=== PATIENT | female | born 1945 | race Caucasian/White ===

== ENCOUNTER 2023-01-11 13:25 | Inpatient (IN) | payer OTHER ==
[2023-01-11] MEDS ORDERED: HALOPERIDOL LACTATE 5 MG/ML IM ONE ×2 (15:12→15:26)
[2023-01-11] MEDS ORDERED: MIDAZOLAM HCL 2 MG/2 ML SINGLE DOSE VIAL IM ONE (15:12)
[2023-01-11] MEDS ORDERED: MIDAZOLAM HCL 2 MG/2 ML SINGLE DOSE VIAL ONE (15:25)
[2023-01-11 16:09] LABS: EPI CELLS 14 /uL (0-25.1); HYALINE CASTS 0 /uL (0-3.1); PH,URINE 6.5 (5.0-8.0); URINE APPEARANCE CLEAR; URINE BACTERIA 101 /uL (0-1359); URINE BILIRUBIN NEGATIVE (NEGATIVE); URINE COLOR YELLOW; URINE GLUCOSE (UA) NEGATIVE (NEGATIVE); URINE KETONE TRACE (NEGATIVE); URINE LEUK ESTERASE 2+ (NEGATIVE); URINE NITRITE NEGATIVE (NEGATIVE); URINE PROTEIN NEGATIVE (NEGATIVE); URINE RBC 14 /uL (0-23.9); URINE WBC 32 /uL (0-25.8)
[2023-01-11 17:17] LABS: BASO % 0.4 % (0-2.0); EOS % 0.3 % (0-4.5); HEMATOCRIT 37.3 % (32.4-45.2); HEMOGLOBIN 11.9 GM/dL (10.7-15.3); LYMPH % 12.1 % (8-40); MCH 26.2 pg (25.7-33.7); MCHC 31.8 g/dl (32.0-36.0); MEAN CELL VOLUME 82.5 fl (80-96); MEAN PLT VOLUME 9.9 fl (7.5-11.1); MONO % 5.2 % (3.8-10.2); PLATELET COUNT 171 10^3/uL (134-434); RBC 4.52 M/mm3 (3.60-5.2); RDW 14.9 % (11.6-15.6); WHITE BLOOD COUNT 7.5 K/mm3 (4.0-10.0)
[2023-01-11 17:39] LABS: POTASSIUM 4.2 mmol/L (3.5-5.1)
[2023-01-11 17:40] LABS: CALCIUM 8.7 mg/dL (8.5-10.1)
[2023-01-11 17:41] LABS: ALBUMIN 3.3 g/dl (3.4-5.0); BLOOD UREA NITROGEN 25.3 mg/dL (7-18); MAGNESIUM 2.2 mg/dL (1.8-2.4)
[2023-01-11 17:44] LABS: CREATININE 0.9 mg/dL (0.55-1.3)
[2023-01-11 17:46] LABS: BILIRUBIN,TOTAL 0.4 mg/dL (0.2-1); TOT PROT 7.2 g/dl (6.4-8.2)
[2023-01-11] MEDS ORDERED: cefTRIAXone SODIUM 1 GM VIAL ONE (17:51)
[2023-01-11] MEDS ORDERED: POLYETHYLENE GLYCOL (HEALTHYLAX) 3350 17 GM PACKET PO SCH (20:45)
[2023-01-11] MEDS ORDERED: DONEPEZIL HCL 5 MG TABLET (FP) PO SCH (20:45)
[2023-01-11] MEDS ORDERED: MAG HYDROX/AL HYDROX/SIMETH 30 ML UNIT-DOSE CUP PO PRN (20:45)
[2023-01-11] MEDS ORDERED: PATIENT'S OWN MEDICATION (NON-FORMULARY) (Melatonin [Melatonin] 3 MG Tablet) PO SCH (20:45)
[2023-01-11] MEDS ORDERED: ATORVASTATIN CA 40 MG TABLET (FP) ONE (21:23)
[2023-01-11] MEDS ORDERED: DIVALPROEX SODIUM 125 MG TABLET E.C. ONE (21:24)
[2023-01-11] MEDS ORDERED: DONEPEZIL HCL 5 MG TABLET (FP) ONE (21:24)
[2023-01-11] MEDS ORDERED: ASCORBIC ACID 500 MG TABLET (FP) ONE (21:24)
[2023-01-11] MEDS ORDERED: QUEtiapine FUMARATE 25 MG TABLET ONE (21:24)
[2023-01-11] MEDS ORDERED: PATIENT'S OWN MEDICATION (NON-FORMULARY) (Ascorbic Acid [Vitamin C] 500 MG Capsule) PO SCH (22:00)
[2023-01-11] MEDS ORDERED: DIVALPROEX SODIUM 250 MG TABLET E.C. PO SCH (22:00)
[2023-01-11] MEDS: ATORVASTATIN CA 40 MG TABLET (FP) PO SCH (23:18)
[2023-01-11] MEDS: SENNOSIDES/DOCUSATE COMBO (SENNA PLUS) TABLET (UD) PO SCH (23:18)
[2023-01-11] MEDS: MELATONIN 1 MG TABLET PO SCH (23:18)
[2023-01-11] MEDS: INSULIN SLIDING SCALE (NOVOLOG) 1 VIAL SQ SCH (23:19)
[2023-01-11] MEDS: ASCORBIC ACID 500 MG TABLET (FP) PO SCH (23:19)
[2023-01-11] MEDS: QUEtiapine FUMARATE 50 MG TABLET PO SCH (23:19)
[2023-01-12] MEDS: MEMANTINE HCL 10 MG TABLET (FP) PO SCH ×3 (01:22→22:54)
[2023-01-12] MEDS ORDERED: hydrALAZINE HCL 10 MG TABLET PO ONE (04:35)
[2023-01-12] MEDS: SODIUM CHLORIDE 1,000 ML IV SCH ×2 (05:05→22:53)
[2023-01-12] MEDS: INSULIN SLIDING SCALE (NOVOLOG) 1 VIAL SQ SCH ×4 (06:08→22:53)
[2023-01-12] MEDS ORDERED: HALOPERIDOL LACTATE 5 MG/ML IM PRN (07:00)
[2023-01-12 07:25] LABS: HEMATOCRIT 35.2 % (32.4-45.2); HEMOGLOBIN 11.4 GM/dL (10.7-15.3); MCH 26.2 pg (25.7-33.7); MCHC 32.3 g/dl (32.0-36.0); MEAN CELL VOLUME 81.1 fl (80-96); MEAN PLT VOLUME 9.6 fl (7.5-11.1); PLATELET COUNT 157 10^3/uL (134-434); RBC 4.33 M/mm3 (3.60-5.2); RDW 15.1 % (11.6-15.6); WHITE BLOOD COUNT 5.7 K/mm3 (4.0-10.0)
[2023-01-12 07:34] LABS: POTASSIUM 4.2 mmol/L (3.5-5.1)
[2023-01-12 07:36] LABS: CALCIUM 8.7 mg/dL (8.5-10.1)
[2023-01-12 07:37] LABS: ALBUMIN 3.1 g/dl (3.4-5.0); MAGNESIUM 2.3 mg/dL (1.8-2.4)
[2023-01-12 07:40] LABS: CREATININE 0.9 mg/dL (0.55-1.3); PHOSPHOROUS 3.4 mg/dL (2.5-4.9)
[2023-01-12 07:42] LABS: BILIRUBIN,TOTAL 0.2 mg/dL (0.2-1); TOT PROT 6.5 g/dl (6.4-8.2)
[2023-01-12] MEDS ORDERED: DONEPEZIL HCL 5 MG TABLET (FP) PO SCH (07:49)
[2023-01-12] MEDS ORDERED: CEFTRIAXONE 1 GM in DEXTROSE 5%-WATER - 50 ML IVPB SCH (08:00)
[2023-01-12] MEDS ORDERED: QUEtiapine FUMARATE 25 MG TABLET ONE ×2 (10:14→22:49)
[2023-01-12] MEDS: SENNOSIDES/DOCUSATE COMBO (SENNA PLUS) TABLET (UD) PO SCH (10:17)
[2023-01-12] MEDS: ASCORBIC ACID 500 MG TABLET (FP) PO SCH ×2 (10:17→22:54)
[2023-01-12] MEDS: ENOXAPARIN NA (PORCINE) 40 MG/0.4 ML DISP.SYRIN SQ SCH (10:18)
[2023-01-12] MEDS: QUEtiapine FUMARATE 50 MG TABLET PO SCH ×2 (10:19→22:57)
[2023-01-12] MEDS: POLYETHYLENE GLYCOL (HEALTHYLAX) 3350 17 GM PACKET PO SCH (10:28)
[2023-01-12] MEDS ORDERED: INSULIN SLIDING SCALE (NOVOLOG) 1 VIAL SQ ONE (11:45)
[2023-01-12] MEDS: DIVALPROEX SODIUM 125 MG TABLET E.C. PO SCH ×2 (11:46→22:54)
[2023-01-12 12:41] VITALS: BMI 24.9
[2023-01-12] MEDS: FAMOTIDINE 20 MG TABLET PO SCH (13:09)
[2023-01-12] MEDS: METOPROLOL TARTRATE 50 MG TABLET (FP) PO SCH ×2 (17:48→22:52)
[2023-01-12] MEDS: MELATONIN 1 MG TABLET PO SCH (22:52)
[2023-01-12] MEDS: ATORVASTATIN CA 40 MG TABLET (FP) PO SCH (22:54)
[2023-01-13] MEDS: INSULIN SLIDING SCALE (NOVOLOG) 1 VIAL SQ SCH ×4 (06:18→21:49)
[2023-01-13] MEDS: FAMOTIDINE 20 MG TABLET PO SCH (09:55)
[2023-01-13] MEDS: ASCORBIC ACID 500 MG TABLET (FP) PO SCH ×2 (09:55→21:48)
[2023-01-13] MEDS: QUEtiapine FUMARATE 25 MG TABLET PO SCH ×4 (09:55→21:48)
[2023-01-13] MEDS: POLYETHYLENE GLYCOL (HEALTHYLAX) 3350 17 GM PACKET PO SCH (09:55)
[2023-01-13] MEDS: METOPROLOL TARTRATE 50 MG TABLET (FP) PO SCH ×2 (09:55→21:49)
[2023-01-13] MEDS: SENNOSIDES/DOCUSATE COMBO (SENNA PLUS) TABLET (UD) PO SCH (09:55)
[2023-01-13] MEDS: MULTIVITAMINS (DAILY MVI) TABLET (FP) PO SCH (09:55)
[2023-01-13] MEDS: MEMANTINE HCL 10 MG TABLET (FP) PO SCH ×2 (09:56→21:48)
[2023-01-13] MEDS: DIVALPROEX SODIUM 125 MG TABLET E.C. PO SCH ×2 (09:56→21:48)
[2023-01-13] MEDS: ENOXAPARIN NA (PORCINE) 40 MG/0.4 ML DISP.SYRIN SQ SCH (09:56)
[2023-01-13] MEDS: MELATONIN 1 MG TABLET PO SCH (21:48)
[2023-01-13] MEDS: ATORVASTATIN CA 40 MG TABLET (FP) PO SCH (21:48)
[2023-01-14 08:53] LABS: BASO % 0.3 % (0-2.0); EOS % 0.8 % (0-4.5); HEMATOCRIT 38.8 % (32.4-45.2); HEMOGLOBIN 12.4 GM/dL (10.7-15.3); LYMPH % 11.4 % (8-40); MCH 26.3 pg (25.7-33.7); MCHC 31.9 g/dl (32.0-36.0); MEAN CELL VOLUME 82.7 fl (80-96); MONO % 6.2 % (3.8-10.2); NEUT % 81.3 % (42.8-82.8); PLATELET COUNT 172 10^3/uL (134-434); RBC 4.69 M/mm3 (3.60-5.2); WHITE BLOOD COUNT 8.7 K/mm3 (4.0-10.0)
[2023-01-14 09:13] LABS: POTASSIUM 4.1 mmol/L (3.5-5.1)
[2023-01-14 09:20] LABS: ALBUMIN 3.1 g/dl (3.4-5.0); BLOOD UREA NITROGEN 19.6 mg/dL (7-18); MAGNESIUM 2.5 mg/dL (1.8-2.4)
[2023-01-14 09:21] LABS: PHOSPHOROUS 3.7 mg/dL (2.5-4.9)
[2023-01-14 09:23] LABS: BILIRUBIN,TOTAL 0.5 mg/dL (0.2-1); TOT PROT 7.1 g/dl (6.4-8.2)
[2023-01-14] MEDS: INSULIN SLIDING SCALE (NOVOLOG) 1 VIAL SQ SCH ×4 (09:45→21:39)
[2023-01-14] MEDS: QUEtiapine FUMARATE 25 MG TABLET PO SCH ×4 (10:25→21:38)
[2023-01-14] MEDS: FAMOTIDINE 20 MG TABLET PO SCH (10:25)
[2023-01-14] MEDS: MULTIVITAMINS (DAILY MVI) TABLET (FP) PO SCH (10:25)
[2023-01-14] MEDS: SENNOSIDES/DOCUSATE COMBO (SENNA PLUS) TABLET (UD) PO SCH (10:25)
[2023-01-14] MEDS: METOPROLOL TARTRATE 50 MG TABLET (FP) PO SCH ×2 (10:26→21:38)
[2023-01-14] MEDS: ASCORBIC ACID 500 MG TABLET (FP) PO SCH ×2 (10:26→21:38)
[2023-01-14] MEDS: POLYETHYLENE GLYCOL (HEALTHYLAX) 3350 17 GM PACKET PO SCH (10:26)
[2023-01-14] MEDS: MEMANTINE HCL 10 MG TABLET (FP) PO SCH ×2 (10:26→21:38)
[2023-01-14] MEDS: DIVALPROEX SODIUM 125 MG TABLET E.C. PO SCH ×2 (10:27→21:38)
[2023-01-14] MEDS: ENOXAPARIN NA (PORCINE) 40 MG/0.4 ML DISP.SYRIN SQ SCH (10:27)
[2023-01-14] MEDS ORDERED: INSULIN SLIDING SCALE (NOVOLOG) 1 VIAL SQ ONE (10:28)
[2023-01-14] MEDS ORDERED: QUEtiapine FUMARATE 25 MG TABLET PO ONE (12:36)
[2023-01-14] MEDS: MELATONIN 1 MG TABLET PO SCH (21:38)
[2023-01-14] MEDS: ATORVASTATIN CA 40 MG TABLET (FP) PO SCH (21:39)
[2023-01-15] MEDS: INSULIN SLIDING SCALE (NOVOLOG) 1 VIAL SQ SCH ×3 (07:02→18:05)
[2023-01-15 09:48] LABS: HEMATOCRIT 40.5 % (32.4-45.2); HEMOGLOBIN 13.3 GM/dL (10.7-15.3); MCH 26.5 pg (25.7-33.7); MCHC 32.8 g/dl (32.0-36.0); MEAN CELL VOLUME 80.8 fl (80-96); MEAN PLT VOLUME 9.1 fl (7.5-11.1); PLATELET COUNT 175 10^3/uL (134-434); RBC 5.01 M/mm3 (3.60-5.2); RDW 15.2 % (11.6-15.6); WHITE BLOOD COUNT 6.9 K/mm3 (4.0-10.0)
[2023-01-15] MEDS ORDERED: NUEDEXTA PO SCH (10:00)
[2023-01-15] MEDS ORDERED: ERGOCALCIFEROL (VIT D2) 50,000 UNIT (1.25 MG) CAPSULE PO SCH (10:00)
[2023-01-15 10:52] LABS: POTASSIUM 3.8 mmol/L (3.5-5.1)
[2023-01-15 10:56] LABS: ALBUMIN 3.3 g/dl (3.4-5.0)
[2023-01-15 10:57] LABS: PHOSPHOROUS 3.8 mg/dL (2.5-4.9)
[2023-01-15 10:59] LABS: BILIRUBIN,TOTAL 0.6 mg/dL (0.2-1); CALCIUM 9.1 mg/dL (8.5-10.1); MAGNESIUM 2.5 mg/dL (1.8-2.4); TOT PROT 7.5 g/dl (6.4-8.2)
[2023-01-15] MEDS: QUEtiapine FUMARATE 25 MG TABLET PO SCH ×4 (11:00→22:44)
[2023-01-15] MEDS: FAMOTIDINE 20 MG TABLET PO SCH (11:00)
[2023-01-15] MEDS: ASCORBIC ACID 500 MG TABLET (FP) PO SCH ×2 (11:00→22:46)
[2023-01-15] MEDS: MEMANTINE HCL 10 MG TABLET (FP) PO SCH ×2 (11:00→22:45)
[2023-01-15] MEDS: MULTIVITAMINS (DAILY MVI) TABLET (FP) PO SCH (11:00)
[2023-01-15] MEDS: ENOXAPARIN NA (PORCINE) 40 MG/0.4 ML DISP.SYRIN SQ SCH (11:01)
[2023-01-15] MEDS: POLYETHYLENE GLYCOL (HEALTHYLAX) 3350 17 GM PACKET PO SCH (11:01)
[2023-01-15] MEDS: SENNOSIDES/DOCUSATE COMBO (SENNA PLUS) TABLET (UD) PO SCH (11:01)
[2023-01-15] MEDS: METOPROLOL TARTRATE 50 MG TABLET (FP) PO SCH ×2 (11:04→22:46)
[2023-01-15] MEDS: DIVALPROEX SODIUM 125 MG TABLET E.C. PO SCH ×3 (12:10→22:47)
[2023-01-15 12:42] LABS: INR 1.07 (0.83-1.09); PROTHROMBIN TIME (PATIENT) 12.4 SEC (9.7-13.0)
[2023-01-15 12:44] LABS: ACTIVATED PTT 32.9 SECONDS (25.2-36.5)
[2023-01-15] MEDS: NUEDEXTA PO SCH ×2 (17:27→19:31)
[2023-01-15] MEDS: ERGOCALCIFEROL (VIT D2) 50,000 UNIT (1.25 MG) CAPSULE PO SCH ×2 (17:28→19:32)
[2023-01-15] MEDS: ATORVASTATIN CA 40 MG TABLET (FP) PO SCH (22:44)
[2023-01-15] MEDS: MELATONIN 1 MG TABLET PO SCH (22:45)
[2023-01-15] MEDS: CEFUROXIME AXETIL 500 MG TABLET PO SCH (22:48)
[2023-01-16] MEDS: INSULIN SLIDING SCALE (NOVOLOG) 1 VIAL SQ SCH ×5 (01:18→22:51)
[2023-01-16] MEDS: MULTIVITAMINS (DAILY MVI) TABLET (FP) PO SCH (10:32)
[2023-01-16] MEDS: SENNOSIDES/DOCUSATE COMBO (SENNA PLUS) TABLET (UD) PO SCH (10:32)
[2023-01-16] MEDS: POLYETHYLENE GLYCOL (HEALTHYLAX) 3350 17 GM PACKET PO SCH (10:32)
[2023-01-16] MEDS: ASCORBIC ACID 500 MG TABLET (FP) PO SCH ×2 (10:33→22:47)
[2023-01-16] MEDS: DIVALPROEX SODIUM 125 MG TABLET E.C. PO SCH ×2 (10:33→22:48)
[2023-01-16] MEDS: FAMOTIDINE 20 MG TABLET PO SCH (10:33)
[2023-01-16] MEDS: CEFUROXIME AXETIL 500 MG TABLET PO SCH ×2 (10:33→22:48)
[2023-01-16] MEDS: MEMANTINE HCL 10 MG TABLET (FP) PO SCH ×2 (10:34→22:47)
[2023-01-16] MEDS: QUEtiapine FUMARATE 25 MG TABLET PO SCH ×4 (10:34→22:47)
[2023-01-16] MEDS: METOPROLOL TARTRATE 50 MG TABLET (FP) PO SCH (10:34)
[2023-01-16] MEDS: ENOXAPARIN NA (PORCINE) 40 MG/0.4 ML DISP.SYRIN SQ SCH (11:30)
[2023-01-16] MEDS ORDERED: SODIUM CHLORIDE 500 ML IV STA (13:28)
[2023-01-16] MEDS ORDERED: METOPROLOL TARTRATE 50 MG TABLET (FP) PO SCH (13:37)
[2023-01-16] MEDS ORDERED: SODIUM CHLORIDE 1,000 ML IV SCH (13:45)
[2023-01-16] MEDS: METOPROLOL TARTRATE 25 MG TABLET (FP) PO SCH (22:47)
[2023-01-16] MEDS: ATORVASTATIN CA 40 MG TABLET (FP) PO SCH (22:47)
[2023-01-17 05:24] VITALS: BP 132/79; PULSE 58; RESP 16; TEMP 98.3
[2023-01-17] MEDS: INSULIN SLIDING SCALE (NOVOLOG) 1 VIAL SQ SCH ×2 (06:39→11:15)
[2023-01-17] MEDS: QUEtiapine FUMARATE 25 MG TABLET PO SCH (10:39)
[2023-01-17] MEDS: ENOXAPARIN NA (PORCINE) 40 MG/0.4 ML DISP.SYRIN SQ SCH (10:39)
[2023-01-17] MEDS: MULTIVITAMINS (DAILY MVI) TABLET (FP) PO SCH (10:39)
[2023-01-17] MEDS: METOPROLOL TARTRATE 25 MG TABLET (FP) PO SCH (10:39)
[2023-01-17] MEDS: POLYETHYLENE GLYCOL (HEALTHYLAX) 3350 17 GM PACKET PO SCH (10:39)
[2023-01-17] MEDS: MEMANTINE HCL 10 MG TABLET (FP) PO SCH (10:39)
[2023-01-17] MEDS: FAMOTIDINE 20 MG TABLET PO SCH (10:39)
[2023-01-17] MEDS: SENNOSIDES/DOCUSATE COMBO (SENNA PLUS) TABLET (UD) PO SCH (10:39)
[2023-01-17] MEDS: ASCORBIC ACID 500 MG TABLET (FP) PO SCH (10:39)
[2023-01-17] MEDS: DIVALPROEX SODIUM 125 MG TABLET E.C. PO SCH (10:53)
[2023-01-17] MEDS: CEFUROXIME AXETIL 500 MG TABLET PO SCH (10:53)
== END 2023-01-17 12:25 | DRG 312 ==
LOC: JER 13:25 → JERBED 18:36 → J4S 23:48 → J8W 01-14 23:50
PROVIDERS: ADMIT Internal Medicine; ATTEND Nurse Practitioner Family
DX: R55 Syncope and collapse (principal); N39.0 Urinary tract infection, site not specified; E78.5 Hyperlipidemia, unspecified; K21.9 Gastro-esophageal reflux disease without esophagitis; E20.9 Hypoparathyroidism, unspecified; G40.909 Epilepsy, unspecified, not intractable, without status epilepticus; G30.9 Alzheimer's disease, unspecified; F02.80 Dementia in other diseases classified elsewhere, unspecified severity, without behavioral disturbance, psychotic disturbance, mood disturbance, and anxiety; F32.A Depression, unspecified; E55.9 Vitamin D deficiency, unspecified; F39 Unspecified mood [affective] disorder; R26.81 Unsteadiness on feet; E86.0 Dehydration; I12.9 Hypertensive chronic kidney disease with stage 1 through stage 4 chronic kidney disease, or unspecified chronic kidney disease; E11.22 Type 2 diabetes mellitus with diabetic chronic kidney disease; N18.9 Chronic kidney disease, unspecified; B95.1 Streptococcus, group B, as the cause of diseases classified elsewhere; W05.0XXA Fall from non-moving wheelchair, initial encounter; Y92.232 Corridor of hospital as the place of occurrence of the external cause
CPT/HCPCS: 0241U-QW; 36415; 70450-TC; 71045-TC-FY; 72125-TC; 73502-TC-LT-FY; 80053; 80164; 81003; 82962; 83735; 84100; 84484; 85025; 85027; 85610; 85730; 87077; 87086; 93005; 93010; 93306-TC; 97116-GP; 99285-25

== ENCOUNTER 2023-08-30 13:31 | Inpatient (IN) | payer OTHER ==
[2023-08-30 15:08] LABS: BASO % 0.5 % (0-2.0); EOS % 0.3 % (0-4.5); HEMATOCRIT 37.8 % (32.4-45.2); HEMOGLOBIN 12.3 GM/dL (10.7-15.3); LYMPH % 12.7 % (8-40); MCH 27.1 pg (25.7-33.7); MCHC 32.4 g/dl (32.0-36.0); MEAN CELL VOLUME 83.4 fl (80-96); MEAN PLT VOLUME 9.2 fl (7.5-11.1); MONO % 5.7 % (3.8-10.2); NEUT % 80.8 % (42.8-82.8); PLATELET COUNT 198 10^3/uL (134-434); RBC 4.54 M/mm3 (3.60-5.2); RDW 15.1 % (11.6-15.6); WHITE BLOOD COUNT 9.3 K/mm3 (4.0-10.0)
[2023-08-30 15:15] LABS: VENOUS BASE EXCESS 0.4 mmol/L (-2-2); VENOUS PCO2 46.8 mmHg (38-52); VENOUS PH 7.365 (7.310-7.410)
[2023-08-30 15:22] LABS: INR 1.07 (0.83-1.09); PROTHROMBIN TIME (PATIENT) 12.4 SEC (9.7-13.0)
[2023-08-30 15:25] LABS: ACTIVATED PTT 28.1 SECONDS (25.2-36.5); POTASSIUM 4.4 mmol/L (3.5-5.1)
[2023-08-30 15:28] LABS: ALBUMIN 3.4 g/dl (3.4-5.0); BLOOD UREA NITROGEN 35.6 mg/dL (7-18); CALCIUM 9.6 mg/dL (8.5-10.1); MAGNESIUM 2.5 mg/dL (1.8-2.4)
[2023-08-30 15:31] LABS: CREATININE 1.7 mg/dL (0.55-1.3)
[2023-08-30 15:33] LABS: BILIRUBIN,TOTAL 0.5 mg/dL (0.2-1); TOT PROT 7.7 g/dl (6.4-8.2)
[2023-08-30 15:38] LABS: LACTIC ACID 4.7 mmol/L (0.4-2.0)
[2023-08-30] MEDS: LORazepam 2 MG/ML SDV VIAL IM ONE (17:23)
[2023-08-30] MEDS: MAG HYDROX/AL HYDROX/SIMETH -MYLANTA- ORAL SUSPENSION PO SCH (17:44)
[2023-08-30] MEDS: SODIUM CHLORIDE 1,000 ML IV SCH ×2 (17:44→19:44)
[2023-08-30] MEDS: SODIUM CHLORIDE 500 ML IV STA (17:46)
[2023-08-30 18:58] VITALS: BMI 27.3
[2023-08-30] MEDS: INSULIN ASPART SLIDING SCALE (NOVOLOG) 1 VIAL SQ SCH (21:29)
[2023-08-30] MEDS: SENNOSIDES/DOCUSATE COMBO (SENNA PLUS) TABLET (UD) PO SCH (21:38)
[2023-08-30] MEDS: MEMANTINE HCL 10 MG TABLET (FP) PO SCH (21:38)
[2023-08-30] MEDS: MELATONIN 5 MG TABLETS PO SCH (21:38)
[2023-08-30] MEDS: DIVALPROEX SODIUM 125 MG SPRINKLE CAPS PO SCH (21:38)
[2023-08-30] MEDS: METOPROLOL TARTRATE 25 MG TABLET (FP) PO SCH (21:39)
[2023-08-30] MEDS: HEPARIN NA (PORCINE) 5,000 UNITS/ML 1ML VIAL SQ SCH (21:39)
[2023-08-30] MEDS: QUEtiapine FUMARATE 50 MG TABLET PO SCH (21:39)
[2023-08-30] MEDS: MAG HYDROX/AL HYDROX/SIMETH 30 ML UNIT-DOSE CUP PO SCH (22:36)
[2023-08-31 01:32] LABS: EPI CELLS 11 /uL (0-25.1); HYALINE CASTS 0 /uL (0-3.1); PH,URINE 5.5 (5.0-8.0); URINE APPEARANCE CLOUDY; URINE BACTERIA >9,000 /uL (0-1359); URINE BILIRUBIN NEGATIVE (NEGATIVE); URINE COLOR YELLOW; URINE GLUCOSE (UA) NEGATIVE (NEGATIVE); URINE KETONE TRACE (NEGATIVE); URINE LEUK ESTERASE 3+ (NEGATIVE); URINE NITRITE POSITIVE (NEGATIVE); URINE PROTEIN 1+ (NEGATIVE); URINE RBC 12 /uL (0-23.9); URINE WBC 1020 /uL (0-25.8)
[2023-08-31 06:55] LABS: BASO % 0.5 % (0-2.0); EOS % 1.6 % (0-4.5); HEMATOCRIT 33.6 % (32.4-45.2); HEMOGLOBIN 10.9 GM/dL (10.7-15.3); LYMPH % 28.7 % (8-40); MCH 27.3 pg (25.7-33.7); MCHC 32.5 g/dl (32.0-36.0); MEAN PLT VOLUME 9.5 fl (7.5-11.1); MONO % 7.8 % (3.8-10.2); NEUT % 61.4 % (42.8-82.8); PLATELET COUNT 164 10^3/uL (134-434); RDW 14.7 % (11.6-15.6)
[2023-08-31 07:08] LABS: POTASSIUM 4.1 mmol/L (3.5-5.1)
[2023-08-31 07:17] LABS: BLOOD UREA NITROGEN 29.8 mg/dL (7-18); CALCIUM 8.6 mg/dL (8.5-10.1); MAGNESIUM 2.3 mg/dL (1.8-2.4)
[2023-08-31 07:20] LABS: CREATININE 1.2 mg/dL (0.55-1.3); PHOSPHOROUS 3.1 mg/dL (2.5-4.9)
[2023-08-31 07:21] LABS: BILIRUBIN,TOTAL 0.6 mg/dL (0.2-1)
[2023-08-31 07:22] LABS: TOT PROT 6.5 g/dl (6.4-8.2)
[2023-08-31 08:38] LABS: URINE CRYSTALS NONE SEEN /hpf
[2023-08-31] MEDS: CEFTRIAXONE 1 GM in DEXTROSE 5%-WATER - 50 ML IVPB SCH (10:35)
[2023-08-31] MEDS: FAMOTIDINE 20 MG TABLET PO SCH (10:36)
[2023-08-31] MEDS: ATORVASTATIN CA 40 MG TABLET (FP) PO SCH (10:37)
[2023-08-31] MEDS: POLYETHYLENE GLYCOL (HEALTHYLAX) 3350 17 GM PACKET PO SCH (10:37)
[2023-08-31] MEDS: ACETAMINOPHEN 325 MG TABLET (FP) PO PRN (17:43)
[2023-09-01 08:34] LABS: HEMATOCRIT 33.9 % (32.4-45.2); HEMOGLOBIN 11.2 GM/dL (10.7-15.3); MCH 27.3 pg (25.7-33.7); MCHC 33.1 g/dl (32.0-36.0); MEAN CELL VOLUME 82.4 fl (80-96); MEAN PLT VOLUME 9.6 fl (7.5-11.1); PLATELET COUNT 160 10^3/uL (134-434); RBC 4.12 M/mm3 (3.60-5.2); RDW 14.5 % (11.6-15.6)
[2023-09-01 08:59] LABS: POTASSIUM 4.2 mmol/L (3.5-5.1)
[2023-09-01 09:11] LABS: ALBUMIN 3.2 g/dl (3.4-5.0); CALCIUM 9.2 mg/dL (8.5-10.1)
[2023-09-01 09:12] LABS: BLOOD UREA NITROGEN 20.4 mg/dL (7-18); MAGNESIUM 2.4 mg/dL (1.8-2.4)
[2023-09-01 09:16] LABS: BILIRUBIN,TOTAL 0.4 mg/dL (0.2-1); TOT PROT 6.9 g/dl (6.4-8.2)
[2023-09-01] MEDS: DIVALPROEX NA *ER* EXTEND REL 250 MG TABLET.SA PO SCH (22:15)
[2023-09-02 07:43] LABS: HEMATOCRIT 34.9 % (32.4-45.2); HEMOGLOBIN 11.2 GM/dL (10.7-15.3); MCH 26.9 pg (25.7-33.7); MCHC 32.1 g/dl (32.0-36.0); MEAN CELL VOLUME 83.9 fl (80-96); MEAN PLT VOLUME 9.6 fl (7.5-11.1); PLATELET COUNT 156 10^3/uL (134-434); RBC 4.16 M/mm3 (3.60-5.2); RDW 14.5 % (11.6-15.6)
[2023-09-02 08:04] LABS: POTASSIUM 4.1 mmol/L (3.5-5.1)
[2023-09-02 08:08] LABS: MAGNESIUM 2.5 mg/dL (1.8-2.4)
[2023-09-02 08:09] LABS: ALBUMIN 3.1 g/dl (3.4-5.0)
[2023-09-02 08:10] LABS: BLOOD UREA NITROGEN 20.9 mg/dL (7-18)
[2023-09-02 08:12] LABS: CREATININE 1.1 mg/dL (0.55-1.3)
[2023-09-02 08:14] LABS: BILIRUBIN,TOTAL 0.5 mg/dL (0.2-1); TOT PROT 6.8 g/dl (6.4-8.2)
[2023-09-02] MEDS: ERGOCALCIFEROL (VIT D2) 50,000 UNIT (1.25 MG) CAPSULE PO SCH (09:16)
[2023-09-03 08:21] LABS: HEMATOCRIT 34.9 % (32.4-45.2); HEMOGLOBIN 11.2 GM/dL (10.7-15.3); MCH 26.8 pg (25.7-33.7); MEAN CELL VOLUME 83.9 fl (80-96); MEAN PLT VOLUME 9.9 fl (7.5-11.1); PLATELET COUNT 162 10^3/uL (134-434); RBC 4.16 M/mm3 (3.60-5.2); RDW 14.6 % (11.6-15.6); WHITE BLOOD COUNT 5.8 K/mm3 (4.0-10.0)
[2023-09-03 08:24] LABS: ALBUMIN 3.2 g/dl (3.4-5.0); BLOOD UREA NITROGEN 19.5 mg/dL (7-18); CALCIUM 9.3 mg/dL (8.5-10.1); MAGNESIUM 2.6 mg/dL (1.8-2.4)
[2023-09-03 08:29] LABS: BILIRUBIN,TOTAL 0.4 mg/dL (0.2-1); TOT PROT 6.9 g/dl (6.4-8.2)
[2023-09-03] MEDS: CEFUROXIME AXETIL 500 MG TABLET PO SCH (09:38)
[2023-09-03] MEDS: DIVALPROEX SODIUM 125 MG SPRINKLE CAPS PO SCH (10:00)
[2023-09-04 10:39] VITALS: RESP 20
[2023-09-04 14:26] VITALS: BP 94/73; PULSE 67; TEMP 98
== END 2023-09-04 14:35 | DRG 690 ==
LOC: JER 13:31 → JERBED 15:00 → OBSVTOIN 15:00 → J4W 16:39
PROVIDERS: ADMIT Internal Medicine; ATTEND Nurse Practitioner Acute Care
DX: N39.0 Urinary tract infection, site not specified (principal); N17.9 Acute kidney failure, unspecified; E87.20 Acidosis, unspecified; R55 Syncope and collapse; G30.9 Alzheimer's disease, unspecified; F02.80 Dementia in other diseases classified elsewhere, unspecified severity, without behavioral disturbance, psychotic disturbance, mood disturbance, and anxiety; I35.0 Nonrheumatic aortic (valve) stenosis; E78.5 Hyperlipidemia, unspecified; E20.9 Hypoparathyroidism, unspecified; K21.9 Gastro-esophageal reflux disease without esophagitis; F32.A Depression, unspecified; F39 Unspecified mood [affective] disorder; N18.9 Chronic kidney disease, unspecified; I12.9 Hypertensive chronic kidney disease with stage 1 through stage 4 chronic kidney disease, or unspecified chronic kidney disease; E86.0 Dehydration; K59.00 Constipation, unspecified; E11.9 Type 2 diabetes mellitus without complications; Z79.84 Long term (current) use of oral hypoglycemic drugs
CPT/HCPCS: 0241U-QW; 36415; 70450-TC; 71045-TC-FY; 80053; 80164; 81003; 82570; 82607; 82803; 82962; 83605; 83735; 83935; 84100; 84300; 84439; 84443; 84484; 85025; 85027; 85610; 85730; 86780; 87086; 87186; 93005; 93010; 97116-GP; 97162-GP; 99285-25; J1644

== ENCOUNTER 2023-11-04 20:36 | Inpatient (IN) | payer OTHER ==
[2023-11-04 21:26] LABS: BASO % 0.5 % (0-2.0); EOS % 1.1 % (0-4.5); HEMATOCRIT 32.7 % (32.4-45.2); HEMOGLOBIN 10.8 GM/dL (10.7-15.3); LYMPH % 13.4 % (8-40); MCH 27.1 pg (25.7-33.7); MCHC 32.9 g/dl (32.0-36.0); MEAN CELL VOLUME 82.3 fl (80-96); MEAN PLT VOLUME 8.3 fl (7.5-11.1); PLATELET COUNT 206 10^3/uL (134-434); RBC 3.98 M/mm3 (3.60-5.2); RDW 15.1 % (11.6-15.6)
[2023-11-04 21:34] LABS: INR 1.01 (0.83-1.09); PROTHROMBIN TIME (PATIENT) 11.4 SEC (9.7-13.0)
[2023-11-04 21:37] LABS: ACTIVATED PTT 29.4 SECONDS (25.2-36.5)
[2023-11-04 21:57] LABS: POTASSIUM 3.7 mmol/L (3.5-5.1)
[2023-11-04 21:59] LABS: ALBUMIN 3.2 g/dl (3.4-5.0); BLOOD UREA NITROGEN 22.3 mg/dL (7-18); CALCIUM 8.9 mg/dL (8.5-10.1)
[2023-11-04 22:04] LABS: BILIRUBIN,TOTAL 0.4 mg/dL (0.2-1)
[2023-11-04] MEDS ORDERED: QUEtiapine FUMARATE 25 MG TABLET ONE (22:15)
[2023-11-04] MEDS ORDERED: MELATONIN 5 MG TABLETS ONE (22:15)
[2023-11-04] MEDS: QUEtiapine FUMARATE 50 MG TABLET PO ONE (22:20)
[2023-11-04] MEDS: MELATONIN 5 MG TABLETS PO ONE (22:20)
[2023-11-04] MEDS ORDERED: HALOPERIDOL LACTATE 5 MG/ML ONE (22:23)
[2023-11-04] MEDS: HALOPERIDOL LACTATE 5 MG/ML IM ONE (22:28)
[2023-11-05] MEDS ORDERED: VALPROATE SODIUM 500 MG/5 ML VIAL ONE (04:01)
[2023-11-05] MEDS: VALPROATE SODIUM 500 MG/5 ML VIAL IVPB ONE (04:21)
[2023-11-05 05:33] LABS: EPI CELLS 10 /uL (0-25.1); HYALINE CASTS 0 /uL (0-3.1); PH,URINE 5.5 (5.0-8.0); URINE APPEARANCE CLEAR; URINE BACTERIA >9,000 /uL (0-1359); URINE BILIRUBIN NEGATIVE (NEGATIVE); URINE COLOR YELLOW; URINE GLUCOSE (UA) NEGATIVE (NEGATIVE); URINE KETONE 1+ (NEGATIVE); URINE LEUK ESTERASE TRACE (NEGATIVE); URINE NITRITE POSITIVE (NEGATIVE); URINE PROTEIN TRACE (NEGATIVE); URINE RBC 11 /uL (0-23.9); URINE WBC 34 /uL (0-25.8)
[2023-11-05 06:34] LABS: HEMATOCRIT 31.1 % (32.4-45.2); HEMOGLOBIN 10.4 GM/dL (10.7-15.3); MCH 27.5 pg (25.7-33.7); MCHC 33.5 g/dl (32.0-36.0); MEAN PLT VOLUME 8.9 fl (7.5-11.1); PLATELET COUNT 197 10^3/uL (134-434); RDW 14.8 % (11.6-15.6); WHITE BLOOD COUNT 6.4 K/mm3 (4.0-10.0)
[2023-11-05] MEDS ORDERED: cefTRIAXone SODIUM 1 GM VIAL ONE (06:45)
[2023-11-05 06:55] LABS: POTASSIUM 3.6 mmol/L (3.5-5.1)
[2023-11-05] MEDS: CEFTRIAXONE 1,000 MG in DEXTROSE 5%-WATER - 50 ML IVPB ONE (06:58)
[2023-11-05 07:03] LABS: BLOOD UREA NITROGEN 18.1 mg/dL (7-18); CREATININE 0.9 mg/dL (0.55-1.3); PHOSPHOROUS 3.4 mg/dL (2.5-4.9)
[2023-11-05 07:04] LABS: BILIRUBIN,TOTAL 0.6 mg/dL (0.2-1); TOT PROT 6.7 g/dl (6.4-8.2)
[2023-11-05 07:05] LABS: CALCIUM 8.8 mg/dL (8.5-10.1)
[2023-11-05 07:06] LABS: MAGNESIUM 1.7 mg/dL (1.8-2.4)
[2023-11-05] MEDS ORDERED: MAGNESIUM 1GM/D5W - 1 GM/100 ML IVPB IVPB ONE (08:30)
[2023-11-05] MEDS: MAGNESIUM 1GM/D5W - 1 GM/100 ML IVPB IVPB ONE (08:38)
[2023-11-05] MEDS ORDERED: ACETAMINOPHEN 325 MG TABLET (FP) PO PRN ×2 (09:28→15:26)
[2023-11-05] MEDS ORDERED: AZTREONAM 1 GM VIAL (RESTRICTED TO ID) ONE (09:39)
[2023-11-05] MEDS ORDERED: ENOXAPARIN NA (PORCINE) 40 MG/0.4 ML DISP.SYRIN SQ ONE (09:43)
[2023-11-05] MEDS: AZTREONAM 1 GM in DEXTROSE 5%-WATER - 50 ML IVPB SCH ×2 (09:50→18:01)
[2023-11-05] MEDS: VALPROATE SODIUM 250 MG/5 ML UNIT DOSE CUP PO SCH ×2 (09:50→18:01)
[2023-11-05] MEDS: ENOXAPARIN NA (PORCINE) 40 MG/0.4 ML DISP.SYRIN SQ SCH (09:50)
[2023-11-05] MEDS: LACTATED RINGERS SOLUTION 1,000 ML/1,000 ML INFUS.BAG IV SCH (10:22)
[2023-11-05] MEDS ORDERED: ASCORBIC ACID 500 MG TABLET (FP) ONE (10:59)
[2023-11-05] MEDS ORDERED: FAMOTIDINE 20 MG TABLET ONE (10:59)
[2023-11-05] MEDS ORDERED: POLYETHYLENE GLYCOL (HEALTHYLAX) 3350 17 GM PACKET ONE (10:59)
[2023-11-05] MEDS ORDERED: QUEtiapine FUMARATE 25 MG TABLET ONE (10:59)
[2023-11-05] MEDS ORDERED: MAG HYDROX/AL HYDROX/SIMETH 30 ML UNIT-DOSE CUP ONE (11:00)
[2023-11-05] MEDS: QUEtiapine FUMARATE 50 MG TABLET PO SCH ×2 (11:09→21:57)
[2023-11-05] MEDS: MEMANTINE HCL 5 MG TABLET (UD) PO SCH ×2 (11:09→21:58)
[2023-11-05] MEDS: POLYETHYLENE GLYCOL (HEALTHYLAX) 3350 17 GM PACKET PO SCH (11:09)
[2023-11-05] MEDS: FAMOTIDINE 20 MG TABLET PO SCH (11:09)
[2023-11-05] MEDS: MAG HYDROX/AL HYDROX/SIMETH 30 ML UNIT-DOSE CUP PO SCH ×2 (11:09→21:58)
[2023-11-05] MEDS: ASCORBIC ACID 500 MG TABLET (FP) PO SCH ×2 (11:09→21:57)
[2023-11-05] MEDS: INSULIN ASPART SLIDING SCALE (NOVOLOG) 1 VIAL SQ SCH ×2 (12:33→18:03)
[2023-11-05] MEDS ORDERED: ASPIRIN 300 MG SUPP.RECT RC ONE (14:58)
[2023-11-05] MEDS: ASPIRIN 300 MG SUPP.RECT RC ONE (15:04)
[2023-11-05 17:06] VITALS: BMI 25.2
[2023-11-05] MEDS: MAG HYDROX/AL HYDROX/SIMETH -MYLANTA- ORAL SUSPENSION PO SCH (17:49)
[2023-11-05] MEDS: SENNOSIDES/DOCUSATE COMBO (SENNA PLUS) TABLET (UD) PO SCH (21:56)
[2023-11-05] MEDS: MIRTAZAPINE 15 MG TABLET (FP) PO SCH (21:57)
[2023-11-05] MEDS: MELATONIN 5 MG TABLETS PO SCH (21:57)
[2023-11-05] MEDS: ATORVASTATIN CA 40 MG TABLET (FP) PO SCH (21:57)
[2023-11-05] MEDS ORDERED: MAG HYDROX/AL HYDROX/SIMETH 30 ML UNIT-DOSE CUP PO SCH (22:00)
[2023-11-05] MEDS ORDERED: SENNOSIDES/DOCUSATE COMBO (SENNA PLUS) TABLET (UD) PO SCH (22:00)
[2023-11-05] MEDS ORDERED: MELATONIN 5 MG TABLETS PO SCH (22:00)
[2023-11-05] MEDS ORDERED: ATORVASTATIN CA 40 MG TABLET (FP) PO SCH (22:00)
[2023-11-05] MEDS ORDERED: MIRTAZAPINE 15 MG TABLET (FP) PO SCH (22:00)
[2023-11-06] MEDS ORDERED: CEFTRIAXONE 1 GM in DEXTROSE 5%-WATER - 50 ML IVPB SCH (06:00)
[2023-11-06 08:08] LABS: HEMATOCRIT 30.4 % (32.4-45.2); HEMOGLOBIN 10.3 GM/dL (10.7-15.3); MCH 27.7 pg (25.7-33.7); MCHC 33.7 g/dl (32.0-36.0); MEAN CELL VOLUME 82.2 fl (80-96); MEAN PLT VOLUME 8.9 fl (7.5-11.1); PLATELET COUNT 181 10^3/uL (134-434); WHITE BLOOD COUNT 5.3 K/mm3 (4.0-10.0)
[2023-11-06 08:29] LABS: CALCIUM 8.7 mg/dL (8.5-10.1)
[2023-11-06 08:32] LABS: PHOSPHOROUS 3.5 mg/dL (2.5-4.9)
[2023-11-06 08:33] LABS: CREATININE 0.7 mg/dL (0.55-1.3)
[2023-11-06] MEDS ORDERED: metoPROLOL SUCCINATE 25 MG TAB.SR.24H (FP) PO SCH (09:00)
[2023-11-06] MEDS: metoPROLOL SUCCINATE 25 MG TAB.SR.24H (FP) PO SCH (09:51)
[2023-11-06] MEDS: FAMOTIDINE 20 MG TABLET PO SCH (09:51)
[2023-11-06] MEDS: ENOXAPARIN NA (PORCINE) 40 MG/0.4 ML DISP.SYRIN SQ SCH (09:52)
[2023-11-06] MEDS: POLYETHYLENE GLYCOL (HEALTHYLAX) 3350 17 GM PACKET PO SCH (09:53)
[2023-11-06] MEDS ORDERED: AZTREONAM 1 GM in DEXTROSE 5%-WATER - 50 ML IVPB SCH (10:00)
[2023-11-06] MEDS: CEFTRIAXONE 1 GM in DEXTROSE 5%-WATER - 50 ML IVPB SCH (18:40)
[2023-11-07] MEDS ORDERED: MAGNESIUM HYDROX 2400MG/30ML ORAL SUSPENSION 30 ML CUP PO SCH (09:00)
[2023-11-07] MEDS: MAGNESIUM HYDROX 2400MG/30ML ORAL SUSPENSION 30 ML CUP PO SCH (10:08)
[2023-11-07 10:54] LABS: HEMATOCRIT 39.1 % (32.4-45.2); MCH 27.2 pg (25.7-33.7); MCHC 33.1 g/dl (32.0-36.0); MEAN CELL VOLUME 82.1 fl (80-96); MEAN PLT VOLUME 8.4 fl (7.5-11.1); PLATELET COUNT 255 10^3/uL (134-434); RBC 4.77 M/mm3 (3.60-5.2); RDW 14.8 % (11.6-15.6); WHITE BLOOD COUNT 6.2 K/mm3 (4.0-10.0)
[2023-11-07 11:22] LABS: POTASSIUM 3.7 mmol/L (3.5-5.1)
[2023-11-07 11:27] LABS: BLOOD UREA NITROGEN 10.3 mg/dL (7-18)
[2023-11-07 11:28] LABS: CALCIUM 9.7 mg/dL (8.5-10.1)
[2023-11-07 11:29] LABS: ALBUMIN 3.3 g/dl (3.4-5.0)
[2023-11-07 11:32] LABS: BILIRUBIN,TOTAL 0.7 mg/dL (0.2-1); TOT PROT 7.5 g/dl (6.4-8.2)
[2023-11-07] MEDS: NITROFURANTOIN MONOHYD/M-CRYST 100 MG CAPSULE PO SCH (18:32)
[2023-11-07] MEDS ORDERED: INSULIN ASPART SLIDING SCALE (NOVOLOG) 1 VIAL SQ ONE (18:32)
[2023-11-07] MEDS: AZTREONAM 1 GM in DEXTROSE 5%-WATER - 50 ML IVPB SCH (18:47)
[2023-11-08 07:55] LABS: HEMATOCRIT 34.6 % (32.4-45.2); HEMOGLOBIN 11.4 GM/dL (10.7-15.3); MCH 27.3 pg (25.7-33.7); MCHC 32.9 g/dl (32.0-36.0); PLATELET COUNT 222 10^3/uL (134-434); RBC 4.16 M/mm3 (3.60-5.2); RDW 14.6 % (11.6-15.6); WHITE BLOOD COUNT 6.3 K/mm3 (4.0-10.0)
[2023-11-08 08:13] LABS: ALBUMIN 2.9 g/dl (3.4-5.0); BLOOD UREA NITROGEN 11.6 mg/dL (7-18); CALCIUM 9.1 mg/dL (8.5-10.1)
[2023-11-08 08:17] LABS: BILIRUBIN,TOTAL 0.7 mg/dL (0.2-1); TOT PROT 6.7 g/dl (6.4-8.2)
[2023-11-08 08:18] LABS: CREATININE 0.7 mg/dL (0.55-1.3)
[2023-11-08 12:07] VITALS: BP 130/76; PULSE 78; RESP 20; TEMP 98
== END 2023-11-08 12:48 | DRG 690 ==
LOC: JER 20:36 → JERBED 11-05 03:46 → OBSVTOIN 11-05 04:50 → J8W 11-05 15:11
PROVIDERS: ADMIT Internal Medicine
DX: N39.0 Urinary tract infection, site not specified (principal); E44.0 Moderate protein-calorie malnutrition; B96.1 Klebsiella pneumoniae [K. pneumoniae] as the cause of diseases classified elsewhere; S00.03XA Contusion of scalp, initial encounter; M16.0 Bilateral primary osteoarthritis of hip; E78.5 Hyperlipidemia, unspecified; F39 Unspecified mood [affective] disorder; E83.42 Hypomagnesemia; F32.A Depression, unspecified; R55 Syncope and collapse; I35.0 Nonrheumatic aortic (valve) stenosis; R29.6 Repeated falls; G30.9 Alzheimer's disease, unspecified; F02.80 Dementia in other diseases classified elsewhere, unspecified severity, without behavioral disturbance, psychotic disturbance, mood disturbance, and anxiety; I12.9 Hypertensive chronic kidney disease with stage 1 through stage 4 chronic kidney disease, or unspecified chronic kidney disease; E11.22 Type 2 diabetes mellitus with diabetic chronic kidney disease; N18.2 Chronic kidney disease, stage 2 (mild); Z68.25 Body mass index [BMI] 25.0-25.9, adult; W18.30XA Fall on same level, unspecified, initial encounter; Y92.099 Unspecified place in other non-institutional residence as the place of occurrence of the external cause; Y99.9 Unspecified external cause status
CPT/HCPCS: 36415; 70450-TC; 70486-TC; 71045-TC-FY; 72125-TC; 72170-TC-FY; 80048; 80053; 81003; 82550; 82553; 82962; 83735; 84100; 84484; 85025; 85027; 85610; 85730; 86850; 86900; 86901; 87086; 87186; 87635; 93005; 93010; 93306-TC; 93880-TC; 97116-GP; 97161-GP; 99285-25; G0378

== ENCOUNTER 2023-12-16 13:21 | Inpatient (IN) | payer OTHER ==
[2023-12-16 16:38] LABS: BASO % 0.4 % (0-2.0); HEMATOCRIT 30.5 % (32.4-45.2); HEMOGLOBIN 10.1 GM/dL (10.7-15.3); LYMPH % 11.3 % (8-40); MCH 26.9 pg (25.7-33.7); MCHC 33.2 g/dl (32.0-36.0); MEAN CELL VOLUME 81.3 fl (80-96); MEAN PLT VOLUME 7.8 fl (7.5-11.1); MONO % 5.5 % (3.8-10.2); NEUT % 82.8 % (42.8-82.8); PLATELET COUNT 234 10^3/uL (134-434); RBC 3.76 M/mm3 (3.60-5.2); RDW 15.9 % (11.6-15.6); WHITE BLOOD COUNT 8.3 K/mm3 (4.0-10.0)
[2023-12-16 16:45] LABS: INR 1.05 (0.83-1.09); PROTHROMBIN TIME (PATIENT) 11.8 SEC (9.7-13.0)
[2023-12-16 16:47] LABS: ACTIVATED PTT 28.8 SECONDS (25.2-36.5)
[2023-12-16 16:58] LABS: CHLORIDE 108 mmol/L (98-107); SODIUM 146 mmol/L (136-145)
[2023-12-16 16:59] LABS: POTASSIUM 2.9 mmol/L (3.5-5.1)
[2023-12-16 17:00] LABS: CALCIUM 8.8 mg/dL (8.5-10.1)
[2023-12-16 17:01] LABS: ALBUMIN 2.4 g/dl (3.4-5.0); ANION GAP 10 mmol/L (4-13); CO2 27 mmol/L (21-32); GLUCOSE,RANDOM 94 mg/dL (74-106); MAGNESIUM 1.5 mg/dL (1.8-2.4)
[2023-12-16 17:04] LABS: CREATININE 0.8 mg/dL (0.55-1.3); PHOSPHOROUS 1.6 mg/dL (2.5-4.9); SGOT/AST 26 U/L (15-37); SGPT/ALT 19 U/L (13-61)
[2023-12-16 17:05] LABS: TOT PROT 6.5 g/dl (6.4-8.2)
[2023-12-16 17:06] LABS: BILIRUBIN,TOTAL 0.5 mg/dL (0.2-1)
[2023-12-16 17:07] LABS: ALK PHOS 117 U/L (45-117)
[2023-12-16] MEDS ORDERED: KCL 10 MEQ IVPB 10 MEQ/100 ML INFUS.BAG IVPB ONE (17:32)
[2023-12-16] MEDS: KCL 10 MEQ IVPB 10 MEQ/100 ML INFUS.BAG IVPB SCH (17:49)
[2023-12-16] MEDS: LACTATED RINGERS SOLUTION 1000 ML INFUS.BAG IV ONE (18:49)
[2023-12-16] MEDS ORDERED: MAGNESIUM SULFATE IN WATER 2 GM/50 ML IVPB IVPB ONE (18:53)
[2023-12-16] MEDS: MAGNESIUM SULFATE IN WATER 2 GM/50 ML IVPB IVPB ONE (18:57)
[2023-12-16] MEDS ORDERED: KCL 10 MEQ IVPB 20 MEQ/200 ML INFUS.BAG IVPB ONE (19:31)
[2023-12-16] MEDS: POTASSIUM CHLORIDE ORAL LIQUID 20 MEQ/15 ML PO ONE (19:38)
[2023-12-16] MEDS ORDERED: ACETAMINOPHEN INJECTION 100 ML IVPB ONE (22:00)
[2023-12-16] MEDS: ACETAMINOPHEN 1000 MG/100 ML BAG IVPB ONE (22:04)
[2023-12-17] MEDS ORDERED: VALPROATE SODIUM 250 MG/5 ML UNIT DOSE CUP PO SCH (00:15)
[2023-12-17 02:20] LABS: EPI CELLS 1 /uL (0-25.1); HYALINE CASTS 1 /uL (0-3.1); URINE APPEARANCE CLOUDY; URINE BACTERIA 4221 /uL (0-1359); URINE BILIRUBIN NEGATIVE (NEGATIVE); URINE COLOR YELLOW; URINE GLUCOSE (UA) NEGATIVE (NEGATIVE); URINE KETONE TRACE (NEGATIVE); URINE LEUK ESTERASE 3+ (NEGATIVE); URINE NITRITE NEGATIVE (NEGATIVE); URINE PROTEIN TRACE (NEGATIVE); URINE RBC 26 /uL (0-23.9); URINE WBC 965 /uL (0-25.8)
[2023-12-17 02:47] LABS: POTASSIUM 3.1 mmol/L (3.5-5.1)
[2023-12-17 02:48] LABS: CALCIUM 8.1 mg/dL (8.5-10.1)
[2023-12-17 02:49] LABS: BLOOD UREA NITROGEN 11.4 mg/dL (7-18); MAGNESIUM 2.1 mg/dL (1.8-2.4)
[2023-12-17 02:52] LABS: CREATININE 0.7 mg/dL (0.55-1.3); PHOSPHOROUS 2.7 mg/dL (2.5-4.9)
[2023-12-17] MEDS: MAGNESIUM HYDROX 2400MG/30ML ORAL SUSPENSION 30 ML CUP PO SCH (03:02)
[2023-12-17] MEDS: MELATONIN 5 MG TABLETS PO ONE (03:02)
[2023-12-17] MEDS: INSULIN ASPART SLIDING SCALE (NOVOLOG) 1 VIAL SQ SCH (03:21)
[2023-12-17] MEDS: VALPROATE SODIUM 250 MG/5 ML UNIT DOSE CUP PO ONE (03:57)
[2023-12-17] MEDS: NAPH,MB-DB/K PH,MBDB POWDER PACKET PO ONE (03:57)
[2023-12-17] MEDS: MEROPENEM 1 GM in DEXTROSE 5%-WATER 100 ML IVPB SCH (04:56)
[2023-12-17 08:54] LABS: BASO % 0.6 % (0-2.0); EOS % 1.3 % (0-4.5); HEMATOCRIT 27.4 % (32.4-45.2); HEMOGLOBIN 9.2 GM/dL (10.7-15.3); LYMPH % 22.7 % (8-40); MCH 27.5 pg (25.7-33.7); MCHC 33.8 g/dl (32.0-36.0); MEAN CELL VOLUME 81.5 fl (80-96); MEAN PLT VOLUME 8.5 fl (7.5-11.1); MONO % 8.2 % (3.8-10.2); NEUT % 67.2 % (42.8-82.8); PLATELET COUNT 207 10^3/uL (134-434); RBC 3.36 M/mm3 (3.60-5.2); WHITE BLOOD COUNT 5.1 K/mm3 (4.0-10.0)
[2023-12-17] MEDS: metoPROLOL SUCCINATE 25 MG TAB.SR.24H (FP) PO SCH (09:15)
[2023-12-17] MEDS: POLYETHYLENE GLYCOL (HEALTHYLAX) 3350 17 GM PACKET PO SCH (09:15)
[2023-12-17] MEDS: ENOXAPARIN NA (PORCINE) 40 MG/0.4 ML DISP.SYRIN SQ SCH (09:15)
[2023-12-17] MEDS: MEMANTINE HCL 5 MG TABLET (UD) PO SCH (09:15)
[2023-12-17] MEDS: FAMOTIDINE 20 MG TABLET PO SCH (09:16)
[2023-12-17] MEDS: MAG HYDROX/AL HYDROX/SIMETH 30 ML UNIT-DOSE CUP PO SCH (09:16)
[2023-12-17] MEDS: VALPROATE SODIUM 250 MG/5 ML UNIT DOSE CUP PO SCH (09:16)
[2023-12-17] MEDS: ASCORBIC ACID 500 MG TABLET (FP) PO SCH (09:16)
[2023-12-17 09:23] LABS: ALBUMIN 2.2 g/dl (3.4-5.0); CALCIUM 8.5 mg/dL (8.5-10.1)
[2023-12-17 09:24] LABS: BLOOD UREA NITROGEN 10.2 mg/dL (7-18); MAGNESIUM 2.2 mg/dL (1.8-2.4)
[2023-12-17 09:25] LABS: PHOSPHOROUS 3.1 mg/dL (2.5-4.9)
[2023-12-17 09:26] LABS: CREATININE 0.7 mg/dL (0.55-1.3)
[2023-12-17 09:27] LABS: BILIRUBIN,TOTAL 0.5 mg/dL (0.2-1); TOT PROT 5.8 g/dl (6.4-8.2)
[2023-12-17] MEDS ORDERED: MEMANTINE HCL 7 MG PO SCH (10:00)
[2023-12-17] MEDS: POTASSIUM CHLORIDE ORAL LIQUID 20 MEQ/15 ML PO ONE (16:18)
[2023-12-17] MEDS ORDERED: INSULIN ASPART SLIDING SCALE (NOVOLOG) 1 VIAL SQ SCH (16:30)
[2023-12-17] MEDS: DEXTROSE 5%-NORMAL SALINE 1,000 ML IV SCH (17:31)
[2023-12-17] MEDS ORDERED: MEROPENEM 1 GM in DEXTROSE 5%-WATER 100 ML IVPB SCH (18:00)
[2023-12-17] MEDS: SODIUM CHLORIDE 500 ML IV STA (19:12)
[2023-12-17] MEDS: MEMANTINE HCL 5 MG TABLET (UD) PO ONE (19:13)
[2023-12-17] MEDS: SODIUM CHLORIDE 1,000 ML IV SCH (19:14)
[2023-12-17] MEDS: SENNOSIDES/DOCUSATE COMBO (SENNA PLUS) TABLET (UD) PO SCH (22:20)
[2023-12-17] MEDS: ATORVASTATIN CA 40 MG TABLET (FP) PO SCH (22:21)
[2023-12-17] MEDS: MELATONIN 5 MG TABLETS PO SCH (22:21)
[2023-12-17] MEDS: MIRTAZAPINE 15 MG TABLET (FP) PO SCH (22:21)
[2023-12-17] MEDS: ACETAMINOPHEN 325 MG TABLET (FP) PO PRN (22:22)
[2023-12-18] MEDS ORDERED: MEROPENEM 1 GM in DEXTROSE 5%-WATER 100 ML IVPB SCH (02:00)
[2023-12-18 07:54] LABS: HEMATOCRIT 30.7 % (32.4-45.2); HEMOGLOBIN 10.3 GM/dL (10.7-15.3); MCH 27.7 pg (25.7-33.7); MCHC 33.4 g/dl (32.0-36.0); MEAN CELL VOLUME 82.7 fl (80-96); MEAN PLT VOLUME 8.8 fl (7.5-11.1); PLATELET COUNT 232 10^3/uL (134-434); RBC 3.71 M/mm3 (3.60-5.2); RDW 16.2 % (11.6-15.6); WHITE BLOOD COUNT 5.5 K/mm3 (4.0-10.0)
[2023-12-18 08:19] LABS: POTASSIUM 3.7 mmol/L (3.5-5.1)
[2023-12-18 08:27] LABS: ALBUMIN 2.5 g/dl (3.4-5.0); BLOOD UREA NITROGEN 6.3 mg/dL (7-18); CALCIUM 8.9 mg/dL (8.5-10.1); MAGNESIUM 1.9 mg/dL (1.8-2.4)
[2023-12-18 08:31] LABS: CREATININE 0.7 mg/dL (0.55-1.3); PHOSPHOROUS 2.8 mg/dL (2.5-4.9)
[2023-12-18 08:33] LABS: BILIRUBIN,TOTAL 0.4 mg/dL (0.2-1); TOT PROT 6.6 g/dl (6.4-8.2)
[2023-12-18] MEDS: KCL 10 MEQ IVPB 10 MEQ/100 ML INFUS.BAG IVPB SCH (09:19)
[2023-12-18] MEDS: PATIENT'S OWN MEDICATION (NON-FORMULARY) (Cran/Vitc/Mannose/Fos/Bromeln [Uti-Stat Liquid] PO SCH (10:04)
[2023-12-18] MEDS: POTASSIUM CHLORIDE ORAL LIQUID 20 MEQ/15 ML PO ONE (10:05)
[2023-12-19 07:59] LABS: HEMOGLOBIN 10.7 GM/dL (10.7-15.3); MCH 27.6 pg (25.7-33.7); MCHC 33.4 g/dl (32.0-36.0); MEAN CELL VOLUME 82.7 fl (80-96); MEAN PLT VOLUME 8.2 fl (7.5-11.1); PLATELET COUNT 246 10^3/uL (134-434); RBC 3.87 M/mm3 (3.60-5.2); RDW 15.6 % (11.6-15.6); WHITE BLOOD COUNT 5.2 K/mm3 (4.0-10.0)
[2023-12-19 08:12] LABS: POTASSIUM 3.5 mmol/L (3.5-5.1)
[2023-12-19 08:23] LABS: CALCIUM 8.8 mg/dL (8.5-10.1)
[2023-12-19 08:25] LABS: ALBUMIN 2.5 g/dl (3.4-5.0); BLOOD UREA NITROGEN 9.1 mg/dL (7-18); MAGNESIUM 1.9 mg/dL (1.8-2.4)
[2023-12-19 08:27] LABS: CREATININE 0.7 mg/dL (0.55-1.3); PHOSPHOROUS 2.8 mg/dL (2.5-4.9)
[2023-12-19 08:28] LABS: BILIRUBIN,TOTAL 0.4 mg/dL (0.2-1); TOT PROT 6.5 g/dl (6.4-8.2)
[2023-12-19] MEDS: DEXTROSE 5%-NORMAL SALINE 1,000 ML IV SCH ×2 (12:30→21:30)
[2023-12-19] MEDS ORDERED: LACTATED RINGERS SOLUTION 1,000 ML IV SCH ×3 (14:45→17:00)
[2023-12-19] MEDS ORDERED: ONDANSETRON 4 MG/2 ML VIAL IVPUSH PRN ×2 (14:52→16:51)
[2023-12-19] MEDS ORDERED: PROMETHAZINE HCL 25 MG/1 ML VIAL IVPB PRN ×2 (14:52→16:51)
[2023-12-19] MEDS ORDERED: LIDOCAINE HCL/PF 2% SDV 5ML VIAL ONE (14:59)
[2023-12-19] MEDS ORDERED: ETOMIDATE 20 MG/10 ML VIAL IVPUSH ONE (14:59)
[2023-12-19] MEDS ORDERED: SODIUM CHLORIDE 0.9% P/F 10 ML VIAL IJ ONE (14:59)
[2023-12-19] MEDS ORDERED: ceFAZolin SODIUM 1 GM VIAL ONE (14:59)
[2023-12-19] MEDS: ceFAZolin SODIUM 1 GM VIAL IVPB ONE (15:30)
[2023-12-19] MEDS ORDERED: DEXAMETHASONE SOD PHOSPHATE 4 MG/1 ML VIAL ONE (15:38)
[2023-12-19] MEDS ORDERED: ONDANSETRON 4 MG/2 ML VIAL ONE (15:38)
[2023-12-19] MEDS ORDERED: METOCLOPRAMIDE HCL INJECTION 10 MG/2 ML VIAL ONE (15:41)
[2023-12-19] MEDS ORDERED: METOPROLOL TARTRATE 5 MG/5 ML VIAL ONE (16:03)
[2023-12-19] MEDS ORDERED: KETOROLAC TROMETHAMINE 30 MG/1 ML VIAL ONE (16:20)
[2023-12-19] MEDS ORDERED: hydrALAZINE HCL 20 MG/ML VIAL ONE (16:25)
[2023-12-19] MEDS: SODIUM CHLORIDE 500 ML IV STA (16:50)
[2023-12-19] MEDS ORDERED: DOPamine HCL 400 MG/10 ML VIAL ONE (16:57)
[2023-12-19] MEDS: DOPAMINE 400 MG/D5W - 400,000 MCG/250 ML INFUS.BAG IVPB SCH (17:15)
[2023-12-19] MEDS ORDERED: PHENYLEPHRINE HCL 10 MG/1 ML SINGLE DOSE VIAL ONE (17:55)
[2023-12-19] MEDS: PHENYLEPHRINE NS PREMIX 50,000 MCG/500 ML BAG CVP SCH (18:15)
[2023-12-19] MEDS: MAG HYDROX/AL HYDROX/SIMETH 30 ML UNIT-DOSE CUP PO SCH (21:33)
[2023-12-19] MEDS: ATORVASTATIN CA 40 MG TABLET (FP) PO SCH (21:33)
[2023-12-19] MEDS: MELATONIN 5 MG TABLETS PO SCH (21:33)
[2023-12-19] MEDS: MEMANTINE HCL 5 MG TABLET (UD) PO SCH (21:34)
[2023-12-19] MEDS: SENNOSIDES/DOCUSATE COMBO (SENNA PLUS) TABLET (UD) PO SCH (21:34)
[2023-12-19] MEDS: ASCORBIC ACID 500 MG TABLET (FP) PO SCH (21:35)
[2023-12-19] MEDS: MIRTAZAPINE 15 MG TABLET (FP) PO SCH (21:35)
[2023-12-19] MEDS ORDERED: CEFAZOLIN SODIUM 2 GM in DEXTROSE 5%-WATER 100 ML IVPB SCH (23:00)
[2023-12-19] MEDS: CEFAZOLIN SODIUM 2 GM in DEXTROSE 5%-WATER 100 ML IVPB SCH (23:47)
[2023-12-20] MEDS: SODIUM CHLORIDE 0.9% 500 ML INFUS.BAG IV ONE (02:10)
[2023-12-20 08:20] LABS: HEMATOCRIT 24.8 % (32.4-45.2); HEMOGLOBIN 8.4 GM/dL (10.7-15.3); MCH 27.8 pg (25.7-33.7); MCHC 33.9 g/dl (32.0-36.0); MEAN CELL VOLUME 81.9 fl (80-96); MEAN PLT VOLUME 8.8 fl (7.5-11.1); PLATELET COUNT 225 10^3/uL (134-434); RBC 3.03 M/mm3 (3.60-5.2); RDW 16.3 % (11.6-15.6); WHITE BLOOD COUNT 7.2 K/mm3 (4.0-10.0)
[2023-12-20 08:37] LABS: POTASSIUM 3.7 mmol/L (3.5-5.1)
[2023-12-20 08:41] LABS: CALCIUM 7.8 mg/dL (8.5-10.1)
[2023-12-20 08:42] LABS: BLOOD UREA NITROGEN 11.4 mg/dL (7-18); MAGNESIUM 1.6 mg/dL (1.8-2.4)
[2023-12-20 08:44] LABS: PHOSPHOROUS 3.1 mg/dL (2.5-4.9)
[2023-12-20 08:45] LABS: BILIRUBIN,TOTAL 0.2 mg/dL (0.2-1); CREATININE 0.8 mg/dL (0.55-1.3); TOT PROT 5.6 g/dl (6.4-8.2)
[2023-12-20] MEDS: ENOXAPARIN NA (PORCINE) 40 MG/0.4 ML DISP.SYRIN SQ SCH (09:27)
[2023-12-20] MEDS: POLYETHYLENE GLYCOL (HEALTHYLAX) 3350 17 GM PACKET PO SCH (09:27)
[2023-12-20] MEDS: VALPROATE SODIUM 250 MG/5 ML UNIT DOSE CUP PO SCH (09:27)
[2023-12-20] MEDS: MAGNESIUM SULFATE IN WATER 2 GM/50 ML IVPB IVPB ONE (09:30)
[2023-12-20] MEDS: FAMOTIDINE 20 MG TABLET PO SCH (09:35)
[2023-12-20] MEDS ORDERED: ENOXAPARIN NA (PORCINE) 40 MG/0.4 ML DISP.SYRIN SQ SCH (10:00)
[2023-12-20] MEDS: LACTATED RINGERS SOLUTION 1,000 ML/1,000 ML INFUS.BAG IV SCH (10:03)
[2023-12-20 14:26] VITALS: BMI 23.0
[2023-12-20] MEDS: ACETAMINOPHEN 325 MG TABLET (FP) PO PRN (21:27)
[2023-12-21] MEDS: ACETAMINOPHEN 1000 MG/100 ML BAG IVPB SCH (05:34)
[2023-12-21] MEDS ORDERED: DEXTROSE 50%-WATER 25 GM/50 ML DISP.SYRIN ONE (06:48)
[2023-12-21] MEDS: DEXTROSE 50%-WATER 25 GM/50 ML DISP.SYRIN IVPUSH ONE (06:52)
[2023-12-21] MEDS: DEXTROSE 50%-WATER - 25 GM/50 ML VIAL IVPUSH ONE (07:01)
[2023-12-21 07:09] LABS: POTASSIUM 3.5 mmol/L (3.5-5.1)
[2023-12-21 07:16] LABS: CALCIUM 8.4 mg/dL (8.5-10.1)
[2023-12-21 07:17] LABS: BLOOD UREA NITROGEN 9.2 mg/dL (7-18); MAGNESIUM 2.2 mg/dL (1.8-2.4)
[2023-12-21 07:20] LABS: CREATININE 0.7 mg/dL (0.55-1.3); PHOSPHOROUS 2.4 mg/dL (2.5-4.9)
[2023-12-21 08:04] LABS: HEMATOCRIT 21.9 % (32.4-45.2); HEMOGLOBIN 7.3 GM/dL (10.7-15.3); MCH 27.5 pg (25.7-33.7); MCHC 33.2 g/dl (32.0-36.0); MEAN PLT VOLUME 8.8 fl (7.5-11.1); PLATELET COUNT 211 10^3/uL (134-434); RBC 2.64 M/mm3 (3.60-5.2); RDW 16.4 % (11.6-15.6); WHITE BLOOD COUNT 5.7 K/mm3 (4.0-10.0)
[2023-12-21] MEDS: metoPROLOL SUCCINATE 25 MG TAB.SR.24H (FP) PO SCH (09:31)
[2023-12-21] MEDS: CEFTRIAXONE 1 GM in DEXTROSE 5%-WATER - 50 ML IVPB SCH (09:32)
[2023-12-21] MEDS: MAG HYDROX/AL HYDROX/SIMETH 30 ML UNIT-DOSE CUP PO SCH (21:42)
[2023-12-21] MEDS: MEMANTINE HCL 5 MG TABLET (UD) PO SCH (21:43)
[2023-12-21] MEDS: MIRTAZAPINE 15 MG TABLET (FP) PO SCH (21:43)
[2023-12-21] MEDS: ATORVASTATIN CA 40 MG TABLET (FP) PO SCH (21:43)
[2023-12-21] MEDS: SENNOSIDES/DOCUSATE COMBO (SENNA PLUS) TABLET (UD) PO SCH (21:43)
[2023-12-21] MEDS: ASCORBIC ACID 500 MG TABLET (FP) PO SCH (21:43)
[2023-12-21] MEDS: MELATONIN 5 MG TABLETS PO SCH (21:44)
[2023-12-22 02:52] VITALS: RESP 18
[2023-12-22 08:28] LABS: BASO % 0.6 % (0-2.0); EOS % 3.7 % (0-4.5); HEMATOCRIT 26.3 % (32.4-45.2); HEMOGLOBIN 8.9 GM/dL (10.7-15.3); MCH 28.1 pg (25.7-33.7); MCHC 34.1 g/dl (32.0-36.0); MEAN CELL VOLUME 82.6 fl (80-96); MEAN PLT VOLUME 8.4 fl (7.5-11.1); MONO % 7.8 % (3.8-10.2); NEUT % 59.9 % (42.8-82.8); PLATELET COUNT 192 10^3/uL (134-434); RBC 3.18 M/mm3 (3.60-5.2); RDW 15.8 % (11.6-15.6); WHITE BLOOD COUNT 4.9 K/mm3 (4.0-10.0)
[2023-12-22 08:42] LABS: CALCIUM 8.3 mg/dL (8.5-10.1); POTASSIUM 3.9 mmol/L (3.5-5.1)
[2023-12-22 08:43] LABS: ALBUMIN 1.9 g/dl (3.4-5.0); BLOOD UREA NITROGEN 11.8 mg/dL (7-18)
[2023-12-22 08:45] LABS: CREATININE 0.5 mg/dL (0.55-1.3)
[2023-12-22 08:46] LABS: PHOSPHOROUS 2.2 mg/dL (2.5-4.9)
[2023-12-22 08:48] LABS: BILIRUBIN,TOTAL 0.4 mg/dL (0.2-1); TOT PROT 5.4 g/dl (6.4-8.2)
[2023-12-22] MEDS: VALPROATE SODIUM 250 MG/5 ML UNIT DOSE CUP PO SCH (09:36)
[2023-12-22] MEDS: FAMOTIDINE 20 MG TABLET PO SCH (09:37)
[2023-12-22] MEDS: POLYETHYLENE GLYCOL (HEALTHYLAX) 3350 17 GM PACKET PO SCH (09:37)
[2023-12-22] MEDS: ENOXAPARIN NA (PORCINE) 40 MG/0.4 ML DISP.SYRIN SQ SCH (09:38)
[2023-12-23] MEDS ORDERED: MAGNESIUM HYDROX 2400MG/30ML ORAL SUSPENSION 30 ML CUP PO SCH (09:00)
[2023-12-23] MEDS: MAGNESIUM HYDROX 2400MG/30ML ORAL SUSPENSION 30 ML CUP PO SCH (10:27)
[2023-12-23 11:30] LABS: BASO % 1.2 % (0-2.0); EOS % 5.4 % (0-4.5); HEMATOCRIT 28.6 % (32.4-45.2); HEMOGLOBIN 9.7 GM/dL (10.7-15.3); LYMPH % 28.6 % (8-40); MCHC 33.9 g/dl (32.0-36.0); MEAN CELL VOLUME 82.4 fl (80-96); MEAN PLT VOLUME 8.3 fl (7.5-11.1); MONO % 5.8 % (3.8-10.2); PLATELET COUNT 240 10^3/uL (134-434); RBC 3.47 M/mm3 (3.60-5.2); RDW 15.8 % (11.6-15.6); WHITE BLOOD COUNT 4.5 K/mm3 (4.0-10.0)
[2023-12-23 11:53] LABS: POTASSIUM 4.1 mmol/L (3.5-5.1)
[2023-12-23 11:54] LABS: CALCIUM 8.8 mg/dL (8.5-10.1)
[2023-12-23 11:55] LABS: BLOOD UREA NITROGEN 10.6 mg/dL (7-18)
[2023-12-23 11:58] LABS: CREATININE 0.7 mg/dL (0.55-1.3)
[2023-12-23 14:12] VITALS: BP 120/76; PULSE 76; TEMP 97.7
== END 2023-12-23 14:31 | DRG 481 ==
LOC: JER 13:21 → INTOOBSV 18:46 → JERBED 18:46 → J4W 23:37 → OBSVTOIN 12-18 08:48 → JICU 12-19 18:22 → J8W 12-21 17:27
PROVIDERS: ADMIT Internal Medicine; ATTEND Internal Medicine
PROC: 0HQ1XZZ Repair Face Skin, External Approach (ICD-10-PCS; principal; 2023-12-16)
PROC: 0QS604Z Reposition Right Upper Femur with Internal Fixation Device, Open Approach (ICD-10-PCS; 2023-12-19)
PROC: 30233N1 Transfusion of Nonautologous Red Blood Cells into Peripheral Vein, Percutaneous Approach (ICD-10-PCS; 2023-12-21)
DX: S72.001A Fracture of unspecified part of neck of right femur, initial encounter for closed fracture (principal); D62 Acute posthemorrhagic anemia; N39.0 Urinary tract infection, site not specified; S01.81XA Laceration without foreign body of other part of head, initial encounter; E11.9 Type 2 diabetes mellitus without complications; I10 Essential (primary) hypertension; I95.1 Orthostatic hypotension; I95.81 Postprocedural hypotension; E78.5 Hyperlipidemia, unspecified; E86.0 Dehydration; D64.9 Anemia, unspecified; G40.909 Epilepsy, unspecified, not intractable, without status epilepticus; F39 Unspecified mood [affective] disorder; F32.A Depression, unspecified; I35.0 Nonrheumatic aortic (valve) stenosis; G30.9 Alzheimer's disease, unspecified; F02.80 Dementia in other diseases classified elsewhere, unspecified severity, without behavioral disturbance, psychotic disturbance, mood disturbance, and anxiety; B96.20 Unspecified Escherichia coli [E. coli] as the cause of diseases classified elsewhere; B96.4 Proteus (mirabilis) (morganii) as the cause of diseases classified elsewhere; Z88.0 Allergy status to penicillin; W18.30XA Fall on same level, unspecified, initial encounter; Y92.89 Other specified places as the place of occurrence of the external cause; Y99.9 Unspecified external cause status
CPT/HCPCS: 36415; 36430; 70450-TC; 72125-TC; 72170-TC-FY; 73502-TC-RT-FY; 74018-TC-FY; 74176-TC; 76000-TC-FY; 80048; 80053; 80164; 81003; 82728; 82962; 83540; 83550; 83735; 84100; 84466; 84484; 85025; 85027; 85045; 85610; 85730; 86850; 86900; 86901; 86922; 87086; 87186; 87324; 87449; 87635; 93005; 93010; 93971-TC; 94760; 97116-GP; 97162-GP; C1713; G0378; J0131; P9038; P9058

== ENCOUNTER 2024-03-04 17:08 | Emergency (ER) | payer OTHER ==
[2024-03-04 17:36] VITALS: BMI 19.7
[2024-03-04] MEDS ORDERED: DIPHTH,PERTUSS(ACELL),TET 0.5 ML DISP.SYRIN IM ONE (19:28)
[2024-03-04] MEDS: DIPHTH,PERTUSS(ACELL),TET 0.5 ML DISP.SYRIN IM ONE (19:31)
[2024-03-04 23:23] VITALS: RESP 16; TEMP 98
[2024-03-05 05:30] VITALS: BP 117/73; PULSE 89
== END 2024-03-05 05:30 ==
LOC: JER 17:08
PROC: 0HQ1XZZ Repair Face Skin, External Approach (ICD-10-PCS; principal; 2024-03-04)
PROC: 3E0234Z Introduction of Serum, Toxoid and Vaccine into Muscle, Percutaneous Approach (ICD-10-PCS; 2024-03-04)
DX: S01.112A Laceration without foreign body of left eyelid and periocular area, initial encounter (principal); M25.552 Pain in left hip; W19.XXXA Unspecified fall, initial encounter; Z23 Encounter for immunization
CPT/HCPCS: 12011-25; 70450-TC; 72125-TC; 72170-TC-FY; 73502-TC-LT-FY; 73502-TC-RT-FY; 73700-TC-RT; 90471; 90715; 99284-25